=== PATIENT | female | born 1985 | race Caucasian/White ===

== ENCOUNTER → 2016-04-01 | Day surgery (SDC) | payer BC ==
[~2016-04-01] MED LIST: LIDOCAINE 1% INJ-PF (10 MG/ML) 30 ML SDV ONE
== END ==
LOC: RAD 09:13 → EDSTATUS 10:00
PROVIDERS: ATTEND Orthopaedic Surgery Sports Medicine
PROC: BQ00ZZZ Plain Radiography of Right Hip (ICD-10-PCS; principal; 2016-04-01)
DX: M25.551 Pain in right hip (principal)
CPT/HCPCS: 81025; 73722; 73525; 77002; A9576; J3490

== ENCOUNTER 2016-09-28 15:19 | Emergency (ER) | payer BC ==
--- NOTE | 2016-09-28 15:57 | ER Document Report ---
ED Medical Screen (RME) - General Chief Complaint: Breast Problem Stated Complaint: RIGHT BREAST PAIN Time Seen by Provider: 09/28/16 15:56 Mode of Arrival: Ambulatory Information source: Patient - pt. with prior episodes of maastitis was recently diagnosed with [facility] of R [facility] by [facility] and started on ABX. States breast now is red, warm, painful, and swollen TRAVEL OUTSIDE OF THE [place] IN LAST 30 DAYS: No - Related Data Allergies/Adverse Reactions: No Known Allergies Allergy (Verified 09/28/16 15:52) Past Medical History Renal/ Medical History: Denies: Hx Peritoneal Dialysis Physical Exam - Vital signs Vitals: Temp Pulse Resp BP Pulse Ox 97.8 F 63 16 122/80 99 09/28/16 15:28 09/28/16 15:28 09/28/16 15:28 09/28/16 15:28 09/28/16 15:28 Course - Vital Signs Vital signs: Temp Pulse Resp BP Pulse Ox 97.8 F 63 16 122/80 99 09/28/16 15:28 09/28/16 15:28 09/28/16 15:28 09/28/16 15:28 09/28/16 15:28
[2016-09-28] MEDS ORDERED: ACETAMINOPHEN 325 MG TABLET PO ONE (16:26)
[2016-09-28 16:27] LABS: ABSOLUTE EOSINOPHILS # (AUTO) 0.1 10^3/uL (0.0-0.6); ABSOLUTE LYMPHOCYTES (AUTO) 1.6 10^3/uL (0.5-4.7); ABSOLUTE MONOCYTES (AUTO) 0.5 10^3/uL (0.1-1.4); ABSOLUTE NEUT (AUTO) 2.2 10^3/uL (1.7-8.2); BASOPHILS % (AUTO) 0.4 % (0-2); EOSINOPHILS % (AUTO) 3.1 % (0-6); HEMOGLOBIN 13.4 g/dL (12.0-15.5); HGB HCT DIFFERENCE 0.2; LYMPHOCYTES % (AUTO) 36.6 % (13-45); MEAN CORPUSCULAR HEMOGLOBIN 28.5 pg (27.0-33.4); MEAN CORPUSCULAR HGB CONC 33.4 g/dL (32.0-36.0); MEAN CORPUSCULAR VOLUME 85 fl (80-97); MONOCYTES % (AUTO) 11.1 % (3-13); RED CELL DISTRIBUTION WIDTH 13.4 % (11.5-14.0); SEGMENTED NEUTROPHILS % (AUTO) 48.8 % (42-78); WHITE BLOOD COUNT 4.4 10^3/uL (4.0-10.5)
--- NOTE | 2016-09-28 16:28 | ER Document Report ---
ED General - General Chief Complaint: Breast Problem Stated Complaint: RIGHT BREAST PAIN Time Seen by Provider: 09/28/16 16:14 Mode of Arrival: Ambulatory Information source: Patient Notes: Patient presents emergency department with complaints of right breast pain. Patient reports this is her third time she has had mastitis in the past year. She has been breast feeding for a year. She was seen by her [facility] on . She has been taking dicloxacillin since that time. She reports fever of 103 last night. Took 400 mg Motrin at 1300 today. Patient reports nipple change-flat, increased pain and erythema with warmth to the right breast. TRAVEL OUTSIDE OF THE [place] IN LAST 30 DAYS: No - HPI Onset: Other Onset/Duration: Persistent Quality of pain: Achy, Other - sore Severity: Moderate Pain Level: 3 Associated symptoms: Fever Exacerbated by: Denies Relieved by: Denies Similar symptoms previously: Yes Recently seen / treated by doctor: Yes - Related Data Allergies/Adverse Reactions: No Known Allergies Allergy (Verified 09/28/16 15:52) Past Medical History - General Information source: Patient - pt. with prior episodes of maastitis was recently diagnosed with mastitis of R breast by [facility] and started on ABX. States breast now is red, warm, painful, and swollen Last Menstrual Period: 2014 - Social History Smoking Status: Never Smoker Chew tobacco use (# tins/day): No Frequency of alcohol use: None Drug Abuse: None Lives with: Family Family History: None Patient has suicidal ideation: No Patient has homicidal ideation: No Endocrine Medical History: Reports: Hx Hypothyroidism Renal/ Medical History: Denies: Hx Peritoneal Dialysis Past Surgical History: Reports: Hx Section - Immunizations Hx Diphtheria, Pertussis, Tetanus Vaccination: No Review of Systems - Review of Systems Notes: Review HPI for review of systems., All other systems negative Physical Exam - Vital signs Vitals: Temp Pulse Resp BP Pulse Ox 97.8 F 63 16 122/80 99 09/28/16 15:28 09/28/16 15:28 09/28/16 15:28 09/28/16 15:28 09/28/16 15:28 - Notes Notes: PHYSICAL EXAMINATION: GENERAL: Well-appearing and in no acute distress HEAD: Atraumatic, normocephalic. EYES: Pupils equal round extraocular movements intact, sclera anicteric, conjunctiva are normal. ENT: nares patent, Moist mucous membranes. NECK: Normal range of motion, supple without lymphadenopathy LUNGS: CTAB and equal. No wheezes rales or rhonchi. HEART: Regular rate and rhythm without murmurs ABDOMEN: Soft, no tenderness. No guarding, no rebound EXTREMITIES: Normal range of motion, no pitting edema. No cyanosis. NEUROLOGICAL: Cranial nerves grossly intact. Normal sensory/motor exams. PSYCH: Normal mood, normal affect. SKIN: Warm, Dry, normal turgor, flat scattered erythemic rash to abdomen right breast with erythema,warmth from [id number] with firmness at 0930 near nipple, nipple flat Course - Re-evaluation Re-evalutation: 09/28/16 16:32 Patient instructed on pending ultrasound Tylenol waiting for labs. 09/28/16 17:54 Ultrasound negative labs unremarkable plan to discharge patient home, instructed to continue dicloxicillin monitor her temperature of follow-up with [facility] on Friday. - Vital Signs Vital signs: Temp Pulse Resp BP Pulse Ox 98.7 F 67 18 118/68 99 09/28/16 18:02 09/28/16 18:02 09/28/16 18:02 09/28/16 18:02 09/28/16 18:02 - Laboratory Result Diagrams: 09/28/16 16:05 09/28/16 16:05 Laboratory results interpreted by me: 09/28/16 16:05 Sodium 135.2 L - Diagnostic Test Radiology reviewed: Image reviewed, Reports reviewed - Ultrasound negative for fluid collection Discharge - Discharge Clinical Impression: Mastitis Condition: Stable Disposition: HOME, SELF-CARE Instructions: Mastitis (OM) Additional Instructions: *You have been treated for mastitis *The ultrasound was negative for abscess *Continue to take medication as prescribed *Monitor your breast for signs of increasing infection such as increasing pain, redness, swelling, warmth *Monitor your temperature, take tylenol or motrin as indicated *Follow up with your [employer] Friday for recheck *Return to ED for signs of increasing infection, worsening condition, concerns, changes, needs Referrals: SAMY GOMEZ NP [Primary Care Provider] - Follow up in 3-5 days [facility] [Provider Group] - 09/30/16
[2016-09-28 16:49] LABS: ALANINE AMINOTRANSFERASE 40 U/L (9-52); ALKALINE PHOSPHATASE 85 U/L (38-126); ANION GAP 11 (5-19); ASPARTATE AMINO TRANSFERASE 36 U/L (14-36); BILIRUBIN,DIRECT 0.3 mg/dL (0.0-0.4); BILIRUBIN,TOTAL 0.5 mg/dL (0.2-1.3); BLOOD UREA NITROGEN 15 mg/dL (7-20); CALCIUM 9.6 mg/dL (8.4-10.2); CARBON DIOXIDE 26 mmol/L (22-30); CHLORIDE 98 mmol/L (98-107); CREATININE RESULT 0.79 mg/dL (0.52-1.25); GLUCOSE 83 mg/dL (75-110); POTASSIUM 4.4 mmol/L (3.6-5.0); SODIUM 135.2 mmol/L (137-145); TOTAL PROTEIN 7.3 g/dL (6.3-8.2)
--- NOTE | 2016-09-28 17:40 | RADIOLOGY REPORT (SQ) ---
EXAM DESCRIPTION: U/S BREAST UNILATERAL LIMITED COMPLETED DATE/TIME: 09/28/2016 5:12 pm REASON FOR STUDY: mastitis, ? abscess COMPARISON: None TECHNIQUE: Static and Realtime grayscale interrogation of focal area(s) of concern in the right twyla st(s) acquired. Selected color doppler/spectral images saved to PACS. LIMITATIONS: None. FINDINGS: Masses:No cystic or solid masses identified Architecture:No alteration of normal morphology. No skin thickening. No edema. Other: None. IMPRESSION: No suspicious findings detected by ultrasound. BIRAD: 1 Negative. RECOMMENDATION: RECOMMENDED FOLLOW-UP: Follow-up as clinically indicated. COMMENT: The [employer] ([employer]) has developed recommendations for screening MRI of the breasts in certain patient populations, to be used in conjunction with mammography. Breast MRI s urveillance may be appropriate for women with more than 20% lifetime risk of developing breast cancer as determined by genetic testing, significant family history of the disease, or history of mantle r adiation for Hodgkins Disease. [employer] Practice Guidelines 2008. TECHNICAL DOCUMENTATION: FINDING NUMBER: (1) ASSESSMENT: (1) JOB ID: [id number] [employer]- All Rights Reserved
[2016-09-28 18:08] VITALS: BP 118/68
== END 2016-09-28 18:03 | disposition home or self-care (01) ==
LOC: ER 15:19
DX: N61.0 Mastitis without abscess (principal); R50.9 Fever, unspecified; E03.9 Hypothyroidism, unspecified
CPT/HCPCS: 36415; 76642; 80053; 85025; 99284